=== PATIENT | female | born 2000 | race Caucasian/White ===

== ENCOUNTER 2024-11-14 20:06 | Emergency (ER) | payer SELFPAY ==
[2024-11-14 20:12] VITALS: BP 131/66; PULSE 61; TEMP 36.9; O2SAT 100; BMI 37.1
--- NOTE | 2024-11-14 21:03 | ED.EAR1 ---
HPI - Ear Problem General Chief complaint: Ear Stated complaint: ear Time Seen by Provider: 11/14/24 20:25 Source: patient Mode of arrival: walk-in History of Present Illness HPI Narrative: 24-year-old female presents here with chief complaint of chronic psoriasis and pain to the left ear. Patient states she has psoriasis and has had having irritation due to her psoriasis to the left ear. Rash is indicated to the auricle of the ear as well as the tragus. No acute otitis media or external infection is noted initially. Related Data Home Medications ?Medication ?Instructions ?Recorded ?Confirmed norgestimate 0.25 mg-ethinyl 1 tab PO DAILY 11/14/24 11/14/24 estradiol 35 mcg tablet (Sprintec (28)) Previous Rx's ?Medication ?Instructions ?Recorded cephalexin 500 mg capsule 500 mg PO BID 10 days #20 caps 11/14/24 hydrocortisone 1 % topical cream 1 applic topical BID PRN rash 11/14/24 (Cortisone (hydrocortisone)) #28.4 grams zinc oxide 40 % topical ointment 1 applic topical DAILY PRN skin 11/14/24 (Aquaphor Baby Diaper Rash) irritation #56 grams Allergies Allergy/AdvReac Type Severity Reaction Status Date / Time No Known Drug Allergies Allergy Verified 11/14/24 20:16 Review of Systems ROS Status of ROS 10 or more systems reviewed and unremarkable except as noted in history and below PFSH PFSH Social History Little interest or pleasure in doing things: not at all Feeling down, depressed, or hopeless: not at all Exam Narrative Exam Narrative: Nurses note and vital signs reviewed and patient is not hypoxic. General: The patient appears well and in no apparent distress. Patient is resting comfortably on cart. Skin: Warm, dry, no pallor noted. There is no rash noted. Head: Normocephalic, atraumatic Eye: Normal conjunctiva, no drainage, EOMI. PERRL Ears, Nose, Mouth, and Throat: rash, dry itching to tragus oral mucosa is moist. Nares patent. Mouth without vesicles. Ear canals patent. Tm's without Erythema Cardiovascular: Regular Rate and Rhythm Respiratory: Patient is in no distress, no accessory muscle use, lungs are clear to auscultation, no wheezing, rales or rhonchi Musculoskeletal: The patient has no evidence of calf tenderness, no pitting edema, symmetrical pulses noted bilaterally Neurological: A&O x4, normal speech Psychiatric: Cooperative Constitutional Vital Signs, click to edit/add: Last Vital Signs Temp 98.5 F 11/14/24 20:12 Pulse 61 11/14/24 20:12 Resp 16 11/14/24 20:12 BP 131/66 11/14/24 20:12 Pulse Ox 100 11/14/24 20:12 O2 Del Method Room Air 11/14/24 20:12 Course Vital Signs Vital signs: Vital Signs Temperature 98.5 F 11/14/24 20:12 Pulse Rate 61 11/14/24 20:12 Respiratory Rate 16 11/14/24 20:12 Blood Pressure 131/66 11/14/24 20:12 Pulse Oximetry 100 11/14/24 20:12 Oxygen Delivery Method Room Air 11/14/24 20:12 Temperature 98.5 F 11/14/24 20:12 Pulse Rate 61 11/14/24 20:12 Respiratory Rate 16 11/14/24 20:12 Blood Pressure 131/66 11/14/24 20:12 Pulse Oximetry 100 11/14/24 20:12 Oxygen Delivery Method Room Air 11/14/24 20:12 Medical Decision Making MDM Narrative Medical decision making narrative: Chief complaint of left ear pain. Patient has psoriasis noted to have inflammation of psoriasis on the tragus of the left ear. Patient states she has been draining and causing irritation. Patient prophylactically placed on Keflex also be given a prescription for cortisone cream to use. I discussed the use of the cortisone cream and Aquaphor treatment as well. Patient encouraged to follow-up with a blower and compressor assembler but states she does not have the money to do so. Patient can follow-up with family care Differential Diagnosis Differential Diagnosis: rash, otitis media, otitis externa Medical Records Medical records reviewed: Yes I reviewed the patient's medical records Lab Data Lab results reviewed: Yes I reviewed the patient's lab results Discharge Plan Discharge Chief Complaint: Ear Clinical Impression: Dermatitis, Ear pain, Psoriasis Patient Disposition: Home, Self-Care Time of Disposition Decision: 21:01 Condition: Good Prescriptions / Home Meds: New cephalexin 500 mg capsule 500 mg PO BID 10 Days Qty: 20 0RF hydrocortisone [Cortisone (hydrocortisone)] 1 % cream 1 applic topical BID PRN (Reason: rash) Qty: 28.4 2RF zinc oxide [Aquaphor Baby Diaper Rash] 40 % ointment 1 applic topical DAILY PRN (Reason: skin irritation) Qty: 56 0RF No Action norgestimate-ethinyl estradiol [Sprintec (28)] 0.25-35 mg-mcg tablet 1 tab PO DAILY Print Language: Arabic Instructions: Psoriasis (ED), Dermatitis (ED) Referrals: Physician,Non-Staff, MD [Primary Care Provider] - 1 week
[2024-11-14 21:41] VITALS: O2SAT 98
== END 2024-11-14 21:42 | disposition home or self-care (01) ==
PROVIDERS: Emergency Provider Emergency Medicine
DX: L40.9 Psoriasis, unspecified (principal); L30.9 Dermatitis, unspecified; H92.02 Otalgia, left ear
CPT/HCPCS: 87070; 99283